=== PATIENT | male | born 1965 | race Caucasian/White ===

== ENCOUNTER 2018-02-14 08:43 | Emergency (ER) | payer OTHER ==
--- NOTE | 2018-02-14 08:59 | ED Physician Chart ---
ED Chief Complaint/HPI - Patient Information Date Seen:: 02/14/18 Time Seen:: 08:45 Chief Complaint:: calf pains bilaterally History of Present Illness:: 52 yr old male s/p gynecomastia surgery last wk Allergies:: Allergies Allergy/AdvReac Type Severity Reaction Status Date / Time No Known Allergies Allergy Verified 02/14/18 08:52 ED Review of Systems - Review of Systems General/Constitutional: No fever Skin: Other Head: No headache, No light-headedness Eyes: No loss of vision, No pain, No diplopia ENT: No earache, No nasal drainage, No sore throat, No tinnitus Neck: No neck pain, No swelling, No thyromegaly, No stiffness, No mass noted Cardio Vascular: No chest pain, No palpitations, No PND, No orthopnea, No edema Pulmonary: No SOB, No cough, No sputum, No wheezing GI: No nausea, No vomiting, No diarrhea, No pain, No melena, No hematochezia, No constipation, No hematemesis G/U: Dysuria Musculoskeletal: No bone or joint pain, No back pain, No muscle pain Endocrine: No polyuria, No polydipsia Psychiatric: No prior psych history, No depression, No anxiety, No suicidal ideation Hematopoietic: No bruising, No lymphadenopathy Allergic/Immuno: No urticaria, No angioedema Neurological: No syncope, No focal symptoms, No weakness, No paresthesia, No headache, No seizure, No dizziness, No confusion, No vertigo ED Past Medical History - Past Medical History Past Medical History: No significant medical hx ED Physical Exam - Physical Examination General/Constitutional: Awake, Well-developed, well-nourished, Alert, No distress, GCS 15, Non-toxic appearing, Ambulatory Head: Atraumatic Eyes: Lids, conjuctiva normal, PERRL, EOMI Skin: Nl inspection, No rash, No skin lesions, No ecchymosis, Well hydrated, No lymphadenopathy ENMT: External ears, nose nl, Nasal exam nl, Lips, teeth, gums nl Neck: Nontender, Full ROM w/o pain, No JVD, No nuchal rigidity, No bruit, No mass, No stridor Respiratory: Nl effort/Exclusion, Clear to Auscultation, No Wheeze/Rhonchi/Rales Cardio Vascular: RRR, No murmur, gallop, rubs, NL S1 S2 GI: No tenderness/rebounding/guarding, No organomegaly, No hernia, Normal BS's, Nondistended, No mass/bruits, No McBurney tenderness ED Assessment - Assessment General Assessment: bilateral calf pains r/o DVT venous duplex ordered ED Septic Shock - . Is Septic Shock (SBP<90, OR Lactate>4 mmol\L) present?: No
--- NOTE | 2018-02-15 09:00 | Diagnostic Imaging Report ---
Bilateral lower extremity Doppler venous ultrasound exam HISTORY: Pain/swelling Sonographic sector images were obtained through the deep venous systems of both legs. Associated Doppler data was obtained. The exam demonstrates patency of the common femoral, superficial femoral, popliteal, and posterior tibial veins bilaterally. Specifically, no thrombus is seen. There are normal compressibility and augmentation responses. IMPRESSION: Negative exam for deep vein thrombophlebitis.
== END 2018-02-14 12:45 | disposition home or self-care (01) ==
LOC: ER 08:43
DX: M79.662 Pain in left lower leg (principal); M79.661 Pain in right lower leg
CPT/HCPCS: 93970-TC-50; Z7502

== ENCOUNTER 2018-02-16 14:53 | Inpatient (IN) | payer OTHER ==
--- NOTE | 2018-02-16 15:30 | ED Physician Chart ---
ED Chief Complaint/HPI - Patient Information Date Seen:: 02/16/18 Time Seen:: 15:29 Chief Complaint:: PAIN IN THE RIGHT LEG History of Present Illness:: THIS PATIENT UNDERWENT SURGERY 12 DAYS AGO FOR GYNECOMASTIA. THE PT DEVELOPED PAIN BEHIND THE RIGHT KNEE AND IN THE RIGHT CALF. HE RATED THE SEVERITY OF THE PAIN A 7/10. THE PATIENT CAME TO THEEMERGENCY DEPARTMENT FOR DAYS AGO AND AN ULTRASOUND OF THE RIGHT LOWER EXTREMITY WAS READ NOT SHOWING ANY EVIDENCE FOR DVT. THE PATIENT CONTINUED TO HAVE PAIN AND HE RETURNED TO THE EMERGENCY DEPARTMENT FOR REEVALUATION. THERE WAS INCREASED PAIN WITH THE PATIENT HAD TENDERNESS OF THE RIGHT CALF AND THERE WAS AN INCREASED SWELLING ING IN THAT AREA WHEN COMPARED TO THE LEFT LOWER EXTREMITY. AN ULTRASOUND WAS PERFORMEDI WAS READ BY THE RADIOLOGISTAND SHOWING EVIDENCEFOR AN EARLY DVT FORMATIONIN THE POPLITEAL ARTERY IN THE RIGHT LOWER EXTREMITY. Allergies:: Allergies Allergy/AdvReac Type Severity Reaction Status Date / Time No Known Allergies Allergy Verified 02/14/18 08:52 Vitals:: Vital Signs - 8 hr 02/16/18 15:02 Temp 97.9 F HR 89 RR 16 BP 124/77 O2 Sat % 97 Family Medical History - Family Member Mother History Unknown: Yes Ethnicity: Living Status: Still Living Hx Family Hypertension: Yes Father History Unknown: Yes Ethnicity: Living Status: Still Living Hx Family Diabetes: Yes ED Physical Exam - Physical Examination General/Constitutional: Awake, Well-developed, well-nourished, Alert Other Gen/Cons comments:: MILD TO MODERATE PAIN FROM DVT. Eyes: Lids, conjuctiva normal, PERRL, EOMI Skin: No rash, No skin lesions, No ecchymosis, Well hydrated, No lymphadenopathy ENMT: External ears, nose nl, Nasal exam nl, Lips, teeth, gums nl, Oropharynx nl , Tonsils nl Neck: Nontender, Full ROM w/o pain, No JVD, No nuchal rigidity, No bruit, No mass, No stridor Respiratory: Nl effort/Exclusion, Clear to Auscultation, No Wheeze/Rhonchi/Rales Cardio Vascular: RRR, No murmur, gallop, rubs, NL S1 S2, Carotid/Femoral/Distal pulses equal bilaterally GI: No tenderness/rebounding/guarding, No hernia, Normal BS's, Nondistended, No mass/bruits, No McBurney tenderness Other GI comments:: RECTAL EXAM DEFERRED AT MY DISCRETION. : No CVA tenderness Extremities: normal strength in all extremities Other Extremities comments:: MILD EDEMA IN THE RIGHT LOWER EXTREMITY BELOW THE LEVEL OFTHE KNEE. ADEQUATE PERIPHERAL PULSES IN ALL FOUR EXTREMITIES.NORMAL CAPILLARY REFILL. Neuro/Psych: Alert/oriented, Normal sensory exam, Normal motor strength, Judgement/insight normal, No focal deficits ED Labs/Radiology/EKG Results - Lab Results Results: ULTRASOUND OF THE RIGHT LOWER EXTREMITY SHOWED EARLY FORMATION OF A DVT IN THE POPLITEAL ARTERY. ED Assessment - Assessment General Assessment: CASE SUMMARY: THIS PATIENT WAS AT INCREASED RISK FOR DVT DUE TO SURGERY ABOUT 2 WEEKS AGO. AN US OF THE RLE 4 DAYS AGO WAS READ NEGATIVE. WHEN HIS SYMPTOMS PERSISTED HE RETURNED AND A REPEAT US WAS REAR POSITIVE DID FOR A DVT.THE PATIENT WILL BE ADMITTED TO DR. CASTORENA FOR TREATMENT OF A DVT. ADMITTED IN STABLE CONDITION. MDM DDX RLE PAIN. NOT CLOSED FX BASED ON NO HX OF G TRAUMA AND MORE LIKELY CAUSE OF DVT CONFIRMED ON ULTRA SOUND. Critical Care Time: N/A ED Septic Shock - . Is Septic Shock (SBP<90, OR Lactate>4 mmol\L) present?: No - <6hrs of presentation: Vital Signs: Vital Signs - 8 hr 02/16/18 15:02 Temp 97.9 F HR 89 RR 16 BP 124/77 O2 Sat % 97 ED Discharge Plan - Patient Disposition Admit/Discharge/Transfer: Acute Care w/in this hosp
[2018-02-17 06:09] VITALS: BP 126/73
[2018-02-17 08:04] LABS: INR 0.94 (0.5-1.4); PROTHROMBIN TIME (TEST) 9.8 SECONDS (9.5-11.5)
[2018-02-17] MEDS ORDERED: Morphine Sulfate 4 mg/mL 1mL Syr IVP PRN (09:40)
[2018-02-17] MEDS ORDERED: Lovenox 1 mg/kg Q12H 1 Each Miscellaneous SUBQ SCH (09:45)
[2018-02-17 09:49] LABS: % BASOPHILS 0.7 % (0.0-2.0); % EOSINOPHILS 2.4 % (0.0-5.0); % LYMPHOCYTES 18.2 % (20.0-50.0); % NEUTROPHILS 68.7 % (40.0-80.0); BASOPHILE ABSOLUTE 0.1 Th/cumm (0-0.2); EOSINOPHILE ABSOLUTE 0.2 Th/cmm (0.1-0.4); HEMATOCRIT 42.7 % (41.0-60); LYMPHOCYTE ABSOLUTE 1.8 Th/cmm (1.5-3.0); MEAN CELL VOLUME 88.9 fl (80-99); MEAN CORPUSCULAR HEMOGLOBIN 29.2 pg (26.0-30.0); MEAN CORPUSCULAR HGB CONC 32.8 pg (28.0-36.0); MEAN PLATELET VOLUME 8.6 fl; PLATELET COUNT 203 Th/cmm (150-400); RED CELL DISTRIBUTION WIDTH 13.2 % (11.5-20.0); WHITE BLOOD COUNT 10.1 Th/cmm (4.8-10.8)
[2018-02-17 10:05] LABS: ALB/GLOB RATIO 1.2 (1.0-1.8); ALBUMIN 3.6 gm/dL (4.2-5.5); ALKALINE PHOSPHATASE 68 U/L (34-104); ANION GAP 10.3 (7.0-16.0); BILIRUBIN,TOTAL 0.8 mg/dL (0.3-1.0); BUN - UREA NITROGEN 10 mg/dL (7-25); CALCIUM SERUM 8.8 mg/dL (8.6-10.3); CARBON DIOXIDE 25.9 mEq/L (21.0-31.0); CHLORIDE 104 mEq/L (98-107); CREATININE - SERUM 0.8 mg/dL (0.7-1.3); GFR AFRICAN-AMERICAN > 60.0 ml/min (>90); GFR NON AFRICAN-AMERICAN > 60.0 ml/min; GLUCOSE 111 mg/dL (70-105); POTASSIUM SERUM 4.2 mEq/L (3.5-5.1); SGOT 10 U/L (13-39); SGPT/ALT 20 U/L (7-52); SODIUM SERUM 136 mEq/L (136-145); TOTAL PROTEIN,SERUM 6.5 gm/dL (6.0-8.3)
[2018-02-17] MEDS: Enoxaparin 100 mg/mL 1mL Syr SUBQ SCH ×2 (10:46→21:35)
--- NOTE | 2018-02-17 11:39 | Diagnostic Imaging Report ---
Portable chest x-ray History: Shortness of breath Allowing for portable technique the heart size is normal. No focal pulmonary parenchymal processes. No hilar or mediastinal abnormalities. Impression: No acute abnormalities.
--- NOTE | 2018-02-17 11:40 | Diagnostic Imaging Report ---
Right lower extremity Doppler venous ultrasound exam (images obtained on 02/16/2018 and 02/17/2018) HISTORY: Pain Sonographic sector images were obtained through the deep venous system of the right leg. Associated Doppler data was obtained. The exam demonstrates intraluminal echogenic density within the right popliteal vein consistent with thrombus. Diminished compression and absence of augmentation. Incomplete occlusion. There remains patency of the right common femoral, superficial femoral, and posterior tibial veins. No thrombus. Normal compressibility and augmentation responses. IMPRESSION: 1. Findings consistent with a segment of thrombophlebitis involving the right popliteal vein with incomplete occlusion.
--- NOTE | 2018-02-17 21:58 | History & Physical ---
ADMIT DATE: CHIEF COMPLAINT: Intractable bilateral calf pain. HISTORY OF PRESENT ILLNESS: The patient is a pleasant 52-year-old male. He is status post bilateral gynecomastia surgery on 02/06/2018, [place]. Since then, he has been mostly sitting and lying down. He started experiencing intractable calf pain a few days ago. He came to the ER last night where he was found to have right lower extremity DVT. PAST MEDICAL HISTORY: Gynecomastia. SOCIAL HISTORY: He works at [id number]. Denies any alcohol, tobacco, or drug abuse. FAMILY HISTORY: Noncontributory. ALLERGIES: No known drug allergies. SURGICAL HISTORY: Right knee surgery, and now gynecomastia related surgery on 02/06/2018. MEDICATIONS: No medications at home. REVIEW OF SYSTEMS: GENERAL: Positive for recent fatigue, but no appetite changes. No fevers or chills. HEENT: No recent head trauma or change in vision, taste, hearing, or smell. Oral: No recent pain or discharge. NECK: No recent tracheal deviation. ABDOMEN: No recent pain or distention. CHEST: Positive for soreness from the surgery. ENDOCRINOLOGY: Positive for gynecomastia resection surgery on 02/06/2018. EXTREMITIES: Negative for edema. MUSCULOSKELETAL: Positive for bilateral calf pain, worse on the right. NEUROLOGIC: No history of stroke or seizure. CARDIOVASCULAR: Denies any chest pain or palpitation. PHYSICAL EXAMINATION: VITAL SIGNS: Temperature 98.1 degrees, heart rate is 76, respirations 18, blood pressure 105/61. Currently, the pain is about 2/10. GENERAL: No acute distress, awake, alert, pleasant. HEENT: No acute issues. NECK: Trachea is midline. CARDIOVASCULAR: Regular rate and rhythm. SKIN: No rashes. Chest wound dressing is intact. PSYCHIATRIC: No psychosis or hallucinations. EXTREMITIES: No edema. MUSCULOSKELETAL: Homans sign is positive on the right lower extremity. PSYCHIATRIC: No psychosis or hallucinations. RESPIRATORY: Clear. MUSCULOSKELETAL: Positive for 5+ muscle strength in upper and lower extremities and calf pain in the right lower extremity. LABORATORY DATA: INR 0.94. There is no other lab work ordered by the ER physician yet. We will order CBC and CMP. Also, the preliminary study for the venous Doppler showed right lower extremity DVT. ASSESSMENT: 1. Right lower extremity deep venous thrombosis. 2. Unsteady gait. PLAN: I have started the patient on Lovenox 1 mg/kg subcutaneous q. 12 hours. Follow up on CBC, CMP and chest x-ray as well. Continue wound care. I have ordered wound care consult for his surgical site. JOB# [id number]
--- NOTE | 2018-02-18 08:50 | General Progress Note ---
Subjective - Review of Systems Service Date: 02/18/18 Subjective: Pt seen and eval. Had a headache yesterday. Also required IV Morphine for RLE pain. He's afraid to walk. Also, has a wound vac that's possibly ready to be removed. No fevers or chills. No n,v,d or cp. Objective - Results Result Diagrams: 02/17/18 07:35 02/17/18 07:35 Recent Labs: Laboratory Last Values WBC 10.1 Th/cmm (4.8-10.8) 02/17/18 07:35 RBC 4.80 Mil/cmm (4.30-5.70) 02/17/18 07:35 Hgb 14.0 gm/dL (12-16) 02/17/18 07:35 Hct 42.7 % (41.0-60) 02/17/18 07:35 MCV 88.9 fl (80-99) 02/17/18 07:35 MCH 29.2 pg (26.0-30.0) 02/17/18 07:35 MCHC Differential 32.8 pg (28.0-36.0) 02/17/18 07:35 RDW 13.2 % (11.5-20.0) 02/17/18 07:35 Plt Count 203 Th/cmm (150-400) 02/17/18 07:35 MPV 8.6 fl 02/17/18 07:35 Neutrophils % 68.7 % (40.0-80.0) 02/17/18 07:35 Lymphocytes % 18.2 % (20.0-50.0) L 02/17/18 07:35 Monocytes % 10.0 % (2.0-10.0) 02/17/18 07:35 Eosinophils % 2.4 % (0.0-5.0) 02/17/18 07:35 Basophils % 0.7 % (0.0-2.0) 02/17/18 07:35 PT 9.8 SECONDS (9.5-11.5) 02/17/18 07:35 INR 0.94 (0.5-1.4) 02/17/18 07:35 PTT (Actin FS) 23.2 SECONDS (26.0-38.0) L 02/17/18 07:35 Sodium 136 mEq/L (136-145) 02/17/18 07:35 Potassium 4.2 mEq/L (3.5-5.1) 02/17/18 07:35 Chloride 104 mEq/L (98-107) 02/17/18 07:35 Carbon Dioxide 25.9 mEq/L (21.0-31.0) 02/17/18 07:35 Anion Gap 10.3 (7.0-16.0) 02/17/18 07:35 BUN 10 mg/dL (7-25) 02/17/18 07:35 Creatinine 0.8 mg/dL (0.7-1.3) 02/17/18 07:35 Est GFR ( Amer) > 60.0 ml/min (>90) 02/17/18 07:35 Est GFR (Non-Af Amer) > 60.0 ml/min 02/17/18 07:35 BUN/Creatinine Ratio 12.5 02/17/18 07:35 Glucose 111 mg/dL (70-105) H 02/17/18 07:35 POC Glucose 105 MG/DL (70 - 105) 02/16/18 21:31 Calcium 8.8 mg/dL (8.6-10.3) 02/17/18 07:35 Total Bilirubin 0.8 mg/dL (0.3-1.0) 02/17/18 07:35 AST 10 U/L (13-39) L 02/17/18 07:35 ALT 20 U/L (7-52) 02/17/18 07:35 Alkaline Phosphatase 68 U/L (34-104) 02/17/18 07:35 Total Protein 6.5 gm/dL (6.0-8.3) 02/17/18 07:35 Albumin 3.6 gm/dL (4.2-5.5) L 02/17/18 07:35 Globulin 2.9 gm/dL 02/17/18 07:35 Albumin/Globulin Ratio 1.2 (1.0-1.8) 02/17/18 07:35 - Physical Exam Vitals and I&O: Vital Signs Temp 96.8 F 02/18/18 07:42 Pulse 78 02/18/18 07:42 Resp 18 02/18/18 07:42 BP 104/62 02/18/18 07:42 Pulse Ox 96 02/18/18 07:42 Intake & Output 02/17/18 02/18/18 02/18/18 18:59 06:59 18:59 Intake Total 800 300 Output Total 30 10 Balance 770 290 Weight (lbs) 97.522 kg 96.615 kg Intake: Oral 800 300 Output: Other 30 10 Other: # Voids 4 2 # Bowel Movements 1 1 Weight Source Bedscale Bedscale Active Medications: Current Medications Acetaminophen (Tylenol) 650 mg PO Q6H PRN PRN Reason: HEADACHE/TEMP ABOVE 100F Stop: 04/19/18 08:45 Docusate Sodium (Colace) 100 mg PO BID PRN PRN Reason: Constipation Stop: 04/18/18 09:39 Enoxaparin Sodium (Lovenox) 100 mg SUBQ Q12HR [place] Stop: 04/18/18 09:59 Last Admin: 02/17/18 21:35 Dose: 100 mg Lorazepam (Ativan) 1 mg IVP Q4HR PRN; Protocol PRN Reason: Anxiety Stop: 04/18/18 09:39 Morphine Sulfate (Morphine) 1 mg IVP Q4HR PRN PRN Reason: Severe Pain Stop: 04/18/18 09:39 Last Admin: 02/17/18 23:04 Dose: 1 mg Zolpidem Tartrate (Ambien) 10 mg PO HS PRN PRN Reason: Insomnia Stop: 04/18/18 09:39 General: Alert, Oriented x3, Cooperative HEENT: Atraumatic, PERRLA Neck: Supple, JVD Cardiovascular: Regular rate, Normal S1, Normal S2 Lungs: Clear to auscultation, Other (wound vac intact) Abdomen: Bowel sounds, Soft Assessment/Plan - Problem List Patient Problems: All Active Problems RIGHT CALF PAIN (Acute) - Assessment Assessment: RLE DVT Status most gynecomastia sx NARANJO Unsteady gait - Plan Plan: Dr. Marx consulted for removal of wound vac. On Lovenox. PT eval. Tylenol for NARANJO Continue wound care.
[2018-02-18] MEDS: Enoxaparin 100 mg/mL 1mL Syr SUBQ SCH ×2 (09:06→22:01)
--- NOTE | 2018-02-18 12:55 | Operative Report ---
DATE OF SURGERY: 02/18/2018 PREOPERATIVE DIAGNOSES: 1. Bilateral mastectomy for gynecomastia. 2. Drain site right post-mastectomy with serous drainage. OPERATION DONE: Removal of drainage catheter. DESCRIPTION OF PROCEDURE: The exit site of the catheter was prepped with Betadine. Because the drainage was benign with only about 10 mL of serous fluid, the catheter was removed following removal of the suture. Dressing was placed over this with 4 x 4 and secured with tape. The patient tolerated the procedure well. JOB# [id number]
--- NOTE | 2018-02-18 15:55 | History & Physical ---
ADMIT DATE: 02/18/2018 REASON FOR CONSULTATION: 1. Mastectomy, bilateral for gynecomastia 2 weeks ago. 2. Deep venous thrombosis, right leg on ultrasound. Thank you for referring this patient to me. HISTORY OF PRESENT ILLNESS: This is a 52-year-old male who underwent bilateral mastectomy for [facility]comastia [facility] [place]. He has done well and the drain on the left side was removed by his sister and the one on the right side has drained only about 10 mL over the past 24 hours. The incision appears to be healing well and the drain is serous. RECOMMENDATIONS: In view of the CBC that is normal and the nature of the drainage is serous, the drain can be removed. This was done. The DVT is treated now with Lovenox and can switch this to Coumadin and/or Xarelto or Plavix. Coumadin is difficult to control with rechecks of PT over several months, ideally 6 months. Plavix can be given instead by dose of 75 mg daily for 6 months. We will follow as needed. JOB# [id number]
[2018-02-19] MEDS: Enoxaparin 100 mg/mL 1mL Syr SUBQ SCH (09:57)
--- NOTE | 2018-02-19 15:59 | Discharge Summary ---
DATE OF DISCHARGE: 02/19/2018 CAUSE OF ADMISSION: The patient is a pleasant 52-year-old male. He is status post bilateral gynecomastia surgery on 02/06/2018 in [place]. Since then he has been experiencing mostly discomfort in surgical site, which was expected. However, he has also been mostly lying down and sitting. He started experiencing intractable calf pain a few days ago. He came to the ER where he was found to have right lower extremity DVT. ADMITTING DIAGNOSES: 1. Right lower extremity deep venous thrombosis. 2. Unsteady gait. DISCHARGE DIAGNOSES: 1. Right lower extremity deep venous thrombosis. 2. Unsteady gait. SUMMARY OF HOSPITAL COURSE: The patient is status post mastectomy. He still had a wound VAC in, he said it was supposed to be removed about a week and half ago, but he still has some drainage, but was not draining now, he really wanted to remove. Dr. Marx saw the patient. He performed the removal of the wound VAC. He has been on wound care as well. He has been walking, PT evaluation has been done. He is feeling much better now. Pain is controlled. He has been on Lovenox for the DVT. He will be given Tylenol for the headaches. PHYSICAL EXAMINATION: VITAL SIGNS: Temperature 97.6 degrees, heart rate is 67, respirations 18, and blood pressure 109/68. Currently, no pain. GENERAL: No acute distress, awake, alert, pleasant. HEENT: No acute issues. NECK: Trachea is midline. CARDIOVASCULAR: Regular rate and rhythm. SKIN: No rash. EXTREMITIES: There is no edema. MUSCULOSKELETAL: He no longer has pain in the right calf. LABORATORY DATA: No new labs as of today. DISPOSITION: He is being discharged home. CONSULTS: Dr. Marx for Surgery. PROCEDURES: Removal of the wound VAC. MEDICATIONS: I have given a script for Xarelto 15 mg 1 tab b.i.d., #42, that is the starting dose for the first 21 days, then he can go to 20 mg daily. However, I have advised him to repeat ultrasound in about 3 weeks. If the DVT is still there, then he can start Xarelto 20 mg daily, per his PCP the patient follows up anyway, so I have given him specific instructions repeat ultrasound. DISPOSITION: He is being discharged home. He is also to follow with his plastic surgeon for the wound care and removal of the dressings. JOB# [id number]
== END 2018-02-19 13:58 | disposition home or self-care (01) | DRG 301 ==
LOC: ER 14:53 → MSI 18:04
PROVIDERS: ADMIT General Practice; ATTEND General Practice
PROC: 0WP8X0Z Removal of Drainage Device from Chest Wall, External Approach (ICD-10-PCS; principal; 2018-02-18)
DX: I82.431 Acute embolism and thrombosis of right popliteal vein (principal); R26.81 Unsteadiness on feet; Z90.13 Acquired absence of bilateral breasts and nipples
CPT/HCPCS: 36415-UA; 71045-TC; 80053-TC; 82948-90; 85025-TC; 85610-TC; 93971-TC-RT; J1650; Z7610